=== PATIENT | male | born 1935 | race Caucasian/White ===

== ENCOUNTER 2018-05-22 13:45 | Inpatient (IN) ==
[2018-05-22] MEDS ORDERED: NS 1,000 ML IV ONE (14:54)
--- NOTE | 2018-05-22 15:14 | Diag Imaging Result Doc PS360 ---
EXAM: CHEST-PORTABLE 05/22/2018 HISTORY: cough TECHNIQUE: AP portable at 1502 COMMENT: The inspiration is less optimal than on 12/21/2016. 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 This is actually more appreciable on the previous study of 12/21/2016. IMPRESSION: No acute disease. Electronically signed by Ford Riley 05/22/2018 3:11 PM
[2018-05-22 15:21] LABS: BASO# 0.05 X1000 (0.0-0.2); BASO% 0.2 % (0.0-0.8); EOS# 0.02 X1000 (0.0-0.7); EOS% 0.1 % (0.0-10.0); HEMATOCRIT 38.8 % (42.0-52.0); HEMOGLOBIN 12.4 g/dL (14.0-18.0); IMM GRAN# 0.05 X1000 (0.0-0.04); IMM GRAN% 0.2 % (0.0-0.5); LYMPH# 25.94 X1000 (1.2-3.4); LYMPH% 87.4 % (20.5-51.1); MCH 31.8 PG (27-31); MCV 99.5 FL (81-99); MONO# 0.41 X1000 (0.11-0.59); MONO% 1.4 % (1.7-9.3); MPV 9.9 FL (7.4-10.4); NEUT# 3.22 X1000 (1.4-6.5); NEUT% 10.7 % (42.2-75.2); PLT 102 X1000 (130-400); RDW 15.9 % (11.5-14.5); WBC 29.69 X1000 (4.8-10.8)
[2018-05-22 15:37] LABS: ALB/GLOB RATIO 1.5; ALBUMIN 4.3 g/dL (3.5-5.0); CALCIUM 9.3 mg/dL (8.8-10.2); CREATININE 1.2 mg/dL (0.7-1.2); POTASSIUM 4.6 mmol/L (3.5-5.1); TOTAL BILIRUBIN 1.15 mg/dL (0.20-1.00); TOTAL PROTEIN 7.1 g/dL (6.3-8.3)
[2018-05-22 15:39] LABS: URINE SOURCE VOIDED
[2018-05-22 15:45] LABS: BILIRUBIN URINE NEGATIVE (NEGATIVE); BLOOD URINE TRACE (NEGATIVE); COLOR YELLOW; GLUCOSE URINE NEGATIVE (NEGATIVE); KETONE URINE NEGATIVE (NEGATIVE); LEUKOCYTES URINE NEGATIVE (NEGATIVE); NITRITE URINE NEGATIVE (NEGATIVE); PROTEIN URINE 50 mg/dL (NEGATIVE); SP GRAVITY URINE 1.016; TURBIDITY URINE CLEAR (CLEAR); UROBILINOGEN URINE 3 mg/dL (NORMAL)
[2018-05-22 15:46] LABS: UR EPITHELIAL CELLS <10 /HPF (<10); URINE BACTERIA NEGATIVE /HPF; URINE RBC <10 /HPF (<10); URINE WBC <10 /HPF (<10)
[2018-05-22 15:48] LABS: LYMPHS 75 % (21-51); MONO 2 % (1-9); SEGS 18 % (42-75)
[2018-05-22] MEDS ORDERED: LEVAQUIN 500 MG/D5W 500 MG/100 ML IVPB IV ONE (15:56)
--- NOTE | 2018-05-22 16:07 | EKG Report ---
Test Performed on : 05/22/2018 2:27:04 PM Test Reason : ED. NO EKG ORDER FOR MUSE Blood Pressure : / mmHG Vent. Rate : 079 BPM Atrial Rate : 104 BPM P-R Int : 000 ms QRS Dur : 108 ms QT Int : 340 ms P-R-T Axes : 000 -62 058 degrees QTc Int : 389 ms Atrial fibrillation. Left anterior fascicular block Septal infarct , age undetermined Abnormal ECG When compared with ECG of 21-DEC-2016 10:07, Atrial fibrillation. has replaced Sinus rhythm. Vent. rate has increased BY 31 BPM Unconfirmed Result
--- NOTE | 2018-05-22 17:55 | PROVIDER DOCUMENTATION ---
This chart was entered by Nathalie Redd Scribe, acting as scribe for Duy Hutson MD. HPI-General Adult - General Chief Complaint: Cold Symptoms Stated Complaint: FEVER,DIZZINESS,CANT HOLD PEE Time Seen by Provider: 05/22/18 14:47 Source: patient Allergies/Adverse Reactions: Patient Allergies Allergy/AdvReac Type Severity Reaction Status Date / Time No Known Allergies Allergy Verified 12/21/16 10:09 Home Medications: Home Medication List Medication Instructions Recorded Confirmed Last Taken Type Albuterol Sulfate [Proair Hfa] 2 puff IH 4XDAY PRN 12/21/16 12/21/16 12/21/16 08 :00 History Digoxin 0.25 mg PO DAILY 12/21/16 12/21/16 12/21/16 08:00 History Fosinopril Sodium [Monopril] 5 mg PO DAILY 12/21/16 12/21/16 12/21/16 08:00 History Magnesium Citrate [Citrate of 300 ml PO ONCE #1 bottle 12/21/16 Unknown Rx Magnesia] Meclizine [Antivert] 12.5 mg PO 4XDAY PRN PRN #20 tablet 12/21/16 Unknown Rx Ondansetron Odt [Zofran 4 mg Odt] 4 mg PO Q6H PRN PRN #15 tablet 12/21/16 Unknown Rx Tiotropium Logan Inhaler 1 puff INH RTDAILY 12/21/16 12/21/16 12/21/16 08:00 History [Spiriva] - History of Present Illness -Gen Adult Nature of Presenting Problems: Patient is a 82 year old male who presents to the ED with flu like symptoms. Patient states symptoms of generalized pain, fever, cough, dizziness, nasal drainage and congestion. Patient states symptoms have been present for 2 days. Patient states taking over the counter medications with no relief of symptoms. Location of Pain/Injury: reports: generalized Pain Radiation: reports: no radiation Quality of Pain: reports: aching Severity: reports: mild Onset/Duration: reports: 2 days ago Timing: reports: still present Context/Activities at Onset: reports: light activity Modifying Factors: improves with: nothing Associated Symptoms: reports: cough, dizziness, fever/chills (fever), sinus congestion/drainage Similar Symptoms Previously?: Yes Recently seen or treated by another doctor?: No Review of Systems - Adult - REVIEW OF SYSTEMS - ADULT Constitutional: reports: fever. denies: chills, fatique Eyes: reports: no symptoms reported Ears, Nose, Mouth & Throat: reports: sinus problem (congestion and drainage). denies: ear pain, nose pain, throat pain Cardiovascular: reports: no symptoms reported Respiratory: reports: cough. denies: shortness of breath, wheezing Gastrointestinal: reports: no symptoms reported Genitourinary: reports: no symptoms reported Musculoskeletal: reports: muscle aches. denies: back pain, neck pain Integumentary: reports: no symptoms reported Neurological: reports: dizziness/vertigo (dizziness). denies: numbness, seizure , syncope Psychiatric: reports: no symptoms reported Endocrine: reports: no symptoms reported Hematologic/Lymphatic: reports: no symptoms reported Allergic/Immunologic: reports: no symptoms reported All Other Systems: Reviewed and Negative Past History - Adult - PAST MEDICAL HISTORY-ADULT Review of Records: reports: Nursing Assessment Review, Medications Reviewed, Social history reviewed & non-contributory. Major Childhood Illnesses: reports: denies history Cardiovascular: reports: HTN Respiratory: reports: COPD Gastrointestinal: reports: denies history Obstetrical/Gynecological: reports: denies history Genitourinary: reports: denies history Musculoskeletal: reports: denies history Neurological: reports: denies history Psychiatric: reports: denies history Endocrine/Immune: reports: Leukemia (17 years; routine blood work by oncologist but no treatment) Other Conditions: reports: denies history - PRIOR SURGERIES/PROCEDURES Surgical/Procedure History: reports: reviewed, not pertinent - IMMUNIZATION STATUS Childhood Immunizations: See Nurse Assessment Flu Vaccine: See Nurse Assessment - FAMILY HISTORY Family History: reviewed, not pertinent - SOCIAL HISTORY Smoking: cigarettes (former) Substance Use: denies Physical Exam-General - PHYSICAL EXAM-ADULT Initial Vital Signs Reviewed: Yes - CONSTITUTIONAL General Appearance: alert, no apparent distress - HEAD, EARS, NOSE, MOUTH & THROAT HENMT: other (dry mucous membranes) - RESPIRATORY Respiratory: chest non-tender, rhonchi (bilateral coarse rhonchi) - CARDIOVASCULAR Cardiovascular: normal peripheral pulses, regular rate, rhythm - MUSCULOSKELETAL Extremity: normal inspection - SKIN Integumentary: normal color, normal turgor, warm/dry - NEUROLOGIC Neurologic: grossly normal - PSYCHIATRIC Psych/Mental Status: normal mood/affect, oriented x 3 Progress - PLAN OF CARE/RESULTS Progress/Plan/Lab Results: Vital Signs - 8 hr 05/22/18 13:59 Temperature 99.8 F H Pulse Rate 99 H Respiratory Rate 24 Blood Pressure 137/81 O2 Sat by Pulse Oximetry 98 Result Diagrams: 05/22/18 15:06 05/22/18 15:06 - EKG 1 Time of EKG reading by physician:: 14:27 EKG Read and Signed by:: Duy Hutson EKG Interpretation (*Must complete 3 of following elements*): Abnormal Rate: 79 Rhythm: atrial fibrillation Comments: left anterior fascicular block; septal infarct, age undetermined - XRAY 1 XRAY Study: Chest Impression: See EMR Report ( EXAM: CHEST-PORTABLE 05/22/2018 HISTORY: cough TECHNIQUE: AP portable at 1502 COMMENT: The inspiration is less optimal than on 12/21/2016. 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 This is actually more appreciable on the previous study of 12/21/2016. IMPRESSION: No acute disease. Electronically signed by Ford Riley 05/22/2018 3:11 PM 05/22/18 1511 Interpreting Physician: Ford Riley MD Dictated Date/Time: 05/22/18 1510 cc: Duy Hutson MD; Kendall Chambers MD) - CONSULTS/PCP/HOSPITALIST Notification #1 *Consult/PCP/Hospitalist*: Dr Gerard for PCP Time Discussed: 18:46 Consult Disposition: Will see in ED, Admit Departure - Departure Date of Disposition Decision: 05/22/18 Time of Disposition Decision: 18:33 DIAGNOSIS: Influenza, Hypoxia Disposition: ADMITTED INPATIENT 09 Certified Medical Emergency: Emergent Condition: Fair Referrals and Follow-Ups: Kendall Chambers MD [Primary Care Provider] - - Critical Care Note This patient required my direct & personal management of CC.: No Attestation - Physician/ MYCHAL Attestation Patient care was provided by Advanced Practice Provider:: No The physician spent face to face time with patient:: Yes Advanced Practice Provider documentation review:: Supervising physician onsite and consulted in the evaluation and care of this patient. The physician did have a face to face encounter with the patient. This chart was documented by the indicated scribe, (Nathalie Redd Scribe) and accurately reflects the services I performed and decisions made by me, Duy Hutson MD, as attested by the provider's signature.
[2018-05-22] MEDS ORDERED: TAMIFLU PO ONE (18:46)
--- NOTE | 2018-05-22 20:50 | HISTORY AND PHYSICAL ---
CHIEF COMPLAINT: Shortness of breath. HISTORY OF PRESENT ILLNESS: Mr. Raheem Bradley is an 82-year-old gentleman with a history of multiple medical problems including essential hypertension, paroxysmal atrial fibrillation, prostate cancer status post radical prostatectomy, COPD and intermittent claudication secondary to peripheral arterial disease who is followed as an outpatient at both Dr. Dougherty and the [facility]. He presented to the ER complaining of a 2-day history of fever as high as 102 degrees, hard shaking rigors, nonproductive cough, pleuritic chest pain with deep inspiration and paroxysms of cough, diffuse muscle aches and generalized malaise. He denies any nausea, vomiting or diarrhea. His chest x-ray demonstrated hyperinflation of the lung koch. On arrival to the ER, his O2 saturations dropped to 87% on room air and improved to 95% to 96% on supplemental O2. His rapid A and B flu screen was positive for influenza A. PAST MEDICAL HISTORY: Chronic lymphocytic leukemia, history of prostate cancer status post radical prostatectomy, essential hypertension, paroxysmal atrial fibrillation, COPD. PAST SURGICAL HISTORY: Excision of multiple skin cancers from his face, radical prostatectomy, femoral-popliteal bypass. ALLERGIES: No known drug allergies. FAMILY HISTORY: Noncontributory. SOCIAL HISTORY: He is a former smoker. He does not consume alcoholic beverages. MEDICATIONS: Digoxin 0.25 mg daily, Monopril 5 mg daily, Antivert 12.5 mg q.6 hours p.r.n., Spiriva 1 inhalation daily. REVIEW OF SYSTEMS: Constitutional: He denies any recent weight gain or weight loss. HEENT: He wears glasses. Cardiovascular: No chest pain, palpitations, or anginal equivalents. Pulmonary: See HPI. Gastrointestinal: No reflux, dysphagia, melena, hematochezia. Endocrine: No polyuria, no polydipsia. No cold or heat intolerance. Skin: No easy bruisability. Genitourinary: No leakage of urine with coughing or laughing. Neurological: No migraines or seizures. PHYSICAL EXAMINATION: GENERAL: This is an acutely ill-appearing, 82-year-old, gentleman in mild distress secondary to shortness of breath. VITAL SIGNS: Temperature 102 degrees, pulse 73, respiratory rate 23, O2 saturation 92% on 3 L of O2. HEENT: Fundi with arteriolar wall thickening. Pupils equal, round, reactive to light. Extraocular eye movements intact. TMs without bullae. NECK: Supple. No masses, JVD or bruits. CARDIOVASCULAR: Regular rate and rhythm. LUNGS: Diffuse end-expiratory wheezing with forced expiration and scattered rhonchi. ABDOMEN: Soft, nontender with active bowel sounds. No hepatosplenomegaly. No abdominal bruits. EXTREMITIES: Without edema. GENITOURINARY AND RECTAL EXAMS: Deferred. NEUROLOGIC: He is alert and oriented to name, place, and time. Cranial nerves 2 through 12 intact grossly. He has normal tone and strength in the upper and lower extremities bilaterally. LABORATORY DATA: Various laboratory studies were obtained. A CBC demonstrated a white count of 29.6, hemoglobin 12.4, hematocrit 38.8, platelet count 102,000 with lymphocytosis. Electrolytes demonstrated the following: Sodium 137, potassium 4.6, chloride 100, BUN 20, creatinine 1.2, glucose 156. Urine was clear. ASSESSMENT: 1. Acute respiratory failure with hypoxia secondary to acute chronic obstructive pulmonary disease exacerbation. 2. Influenza A. 3. Essential hypertension. PLAN: I am going to admit the patient to [facility]. I suspect that the influenza has exacerbated his underlying chronic obstructive pulmonary disease. I will begin supplemental O2 and titrate his O2 to maintain O2 sats greater than 92%. I will begin methylprednisolone 80 mg IV q.6 hours and DuoNeb nebulizer treatments q.4 hours I will begin Tamiflu 75 mg b.i.d. Blood pressure is stable. I will continue fosinopril 5 mg daily. Given his comorbid conditions and clinical presentation, I believe that admission to the hospital is reasonable. Certainly, he is at increased risk for developing a viral pneumonia particularly in the setting of COPD and immunocompromised host with the CLL. I anticipate that he will be in the hospital for at least 2 midnights, and I will therefore place him in inpatient status. I will begin Lovenox 40 mg subcutaneously daily for DVT prophylaxis. cc: MD Kendall Domínguez MD
[2018-05-22] MEDS ORDERED: ZOFRAN IV PRN (20:58)
[2018-05-22] MEDS ORDERED: TYLENOL PO PRN (20:58)
[2018-05-22] MEDS ORDERED: DESYREL PO PRN (20:58)
[2018-05-22] MEDS ORDERED: ANTIVERT PO PRN (20:58)
[2018-05-22] MEDS: DUONEB (A & A) INH SCH (23:10)
[2018-05-22] MEDS: SOLU-MEDROL IV SCH (23:51)
[2018-05-22] MEDS: NS 1,000 ML IV SCH (23:51)
[2018-05-22] MEDS: LOVENOX SUBQ SCH (23:52)
[2018-05-23] MEDS: DUONEB (A & A) INH SCH ×5 (03:00→21:20)
[2018-05-23] MEDS: SOLU-MEDROL IV SCH (05:45)
[2018-05-23 07:31] LABS: BASO# 0.03 X1000 (0.0-0.2); BASO% 0.1 % (0.0-0.8); HEMATOCRIT 37.9 % (42.0-52.0); HEMOGLOBIN 12.1 g/dL (14.0-18.0); IMM GRAN# 0.06 X1000 (0.0-0.04); IMM GRAN% 0.2 % (0.0-0.5); LYMPH# 23.62 X1000 (1.2-3.4); LYMPH% 88.8 % (20.5-51.1); MCH 31.7 PG (27-31); MCHC 31.9 g/dL (33-37); MCV 99.2 FL (81-99); MONO% 1.5 % (1.7-9.3); MPV 9.9 FL (7.4-10.4); NEUT# 2.48 X1000 (1.4-6.5); NEUT% 9.4 % (42.2-75.2); PLT 82 X1000 (130-400); RBC 3.82 XMIL (4.7-6.1); RDW 16.3 % (11.5-14.5); WBC 26.59 X1000 (4.8-10.8)
[2018-05-23] MEDS: SPIRIVA INH SCH (07:52)
[2018-05-23 07:53] LABS: LYMPHS 70 % (21-51); SEGS 10 % (42-75)
[2018-05-23 08:14] LABS: AGAP 13; BUN 22 mg/dL (8-22); CALCIUM 8.1 mg/dL (8.8-10.2); CHLORIDE 102 mmol/L (98-107); COSMO 289; CREATININE 1.1 mg/dL (0.7-1.2); ESTIMATED GFR > 60; GLUCOSE 273 mg/dL (70-104); POTASSIUM 4.2 mmol/L (3.5-5.1); SODIUM 138 mmol/L (136-145); TCO2 23 mmol/L (25-35)
--- NOTE | 2018-05-23 09:05 | PROGRESS NOTE ---
DATE: 05/23/2018 SUBJECTIVE: The patient states he is feeling better. He still has a rattly cough. He is having no difficulty breathing. We reviewed his history from the admission yesterday. OBJECTIVE: Vital Signs: Temperature 94.6, 68, 16, 138/86, and 98% saturated on 3 L nasal cannula. Lungs: On physical exam, the patient's lungs are clear, but he does have a rattly cough. He is not wheezing. Cardiovascular: Regular at approximately 68 beats per minute at the time of my examination. Neurologic: The patient is alert, oriented, conversant and appropriate. He does have a baseline dementia, and does repeat himself sometimes. His dementia is mild. LABORATORY: White cell count 26.5, hematocrit 37.9, and blood glucose is 273. ASSESSMENT AND PLAN: 1. The patient's influenza is being treated appropriately. He is getting also pulmonary treatment for his cough and seems to be doing better. 2. The patient's profound weakness is likely mediated by acute influenza. He states in that regard, he is feeling better, and I have encouraged him to get up in the chair today with expectation of discharge from the hospital tomorrow. 3. Atrial fibrillation. The patient is aware of this. 4. CLL. This makes it difficult to really quantify his white count, but he again has 90% lymphocytes with a white cell count of 26.6. This is likely baseline. 5. I had a discussion with the patient in regard to practice principles. The patient has not been seen in my office in over 5 years, and he admitted that he knew he was not my patient yet claimed to be when he got here and was subsequently put on my service. It was also made clear to him that he will not be a patient in my practice when he is discharged from the hospital. I told him that I would be happy to take care of him this time, but that will be the last time. He was in agreement. He will continue to get the overwhelming majority of his care at the [facility] in [place]. He was in fact there only 3 days ago. cc: Kendall Chambers MD
[2018-05-23] MEDS: LANOXIN PO SCH (09:20)
[2018-05-23] MEDS: TAMIFLU PO SCH ×2 (09:21→21:19)
[2018-05-23] MEDS: MONOPRIL PO SCH (09:35)
[2018-05-23] MEDS: NS 1,000 ML IV SCH (11:10)
[2018-05-23] MEDS: PREDNISONE PO SCH (11:10)
[2018-05-23] MEDS: LOVENOX SUBQ SCH (21:19)
[2018-05-24] MEDS: NS 1,000 ML IV SCH (00:09)
[2018-05-24] MEDS: SPIRIVA INH SCH (07:29)
[2018-05-24] MEDS: DUONEB (A & A) INH SCH (07:29)
[2018-05-24 08:10] VITALS: BP 130/54
[2018-05-24] MEDS: MONOPRIL PO SCH (08:49)
[2018-05-24] MEDS: TAMIFLU PO SCH (08:50)
[2018-05-24] MEDS: LANOXIN PO SCH (08:50)
[2018-05-24] MEDS: PREDNISONE PO SCH (08:50)
--- NOTE | 2018-05-25 07:07 | DISCHARGE SUMMARY ---
ADMISSION DATE: 05/22/2018 DISCHARGE DATE: 05/24/2018 DISCHARGE DIAGNOSES: 1. Influenza. 2. Productive cough. 3. Chronic lymphocytic leukemia. 4. Chronic obstructive pulmonary disease. 5. Acute respiratory failure with hypoxia. HOSPITAL COURSE: The patient was admitted through the emergency room. He had been referred there from a walk-in clinic. The patient was mildly hypoxic and had a rattly cough. He was found to be flu positive. Chest x-ray was inconclusive. Because of the patient's immunocompromised state due to chronic CLL, he was put in the hospital with treatment for influenza, respiratory therapy and antibiotic coverage. The patient rebounded magnificently the following day, but we kept him for an additional day for observation. On the day of discharge, he was very energetic and although he still had a somewhat rattly loose cough, he stated that he would easily be able to take care of himself at home. The patient was prescribed Levaquin for 5 days, prednisone for 5 days, Tamiflu for 3 additional days and some cough medication. It is noted here that the patient is not presently incorporated into my practice. He has not been in the office in 5 to 6 years, but a clerical error because of past associations put him on my service. I completed his treatment here and he will have followup with the [facility] or other local entities as he is to arrange. cc: Kendall Chambers MD
== END 2018-05-24 10:02 | disposition home or self-care (01) | DRG 190 ==
LOC: ED 13:45 → 3N 20:23
PROVIDERS: ADMIT Internal Medicine; ATTEND Internal Medicine
CPT/HCPCS: 71010; 71045; 80048; 80053; 81001; 83605; 85025; 87040; 87275; 87276; 87804; 93005; 94640; 94761; 96361; 96365; 99285; A9270; J1650; J1956; J2930; J7030; J7506; J7512